=== PATIENT | male | born 1985 ===

== ENCOUNTER 2018-12-25 08:06 | Emergency (ER) | payer SELFPAY ==
[~2018-12-25] VITALS: Ht 162.6 cm; Wt 70.0 kg
[2018-12-25 08:59] VITALS: BP 102/58
== END 2018-12-25 10:00 | disposition home or self-care (01) ==
LOC: EMS 08:11
DX: S30.850A Superficial foreign body of lower back and pelvis, initial encounter (principal); S60.552A Superficial foreign body of left hand, initial encounter; S60.551A Superficial foreign body of right hand, initial encounter; S80.852A Superficial foreign body, left lower leg, initial encounter; S80.851A Superficial foreign body, right lower leg, initial encounter; F15.90 Other stimulant use, unspecified, uncomplicated; F17.210 Nicotine dependence, cigarettes, uncomplicated; W60.XXXA Contact with nonvenomous plant thorns and spines and sharp leaves, initial encounter; Y93.02 Activity, running; Y92.89 Other specified places as the place of occurrence of the external cause; Y99.8 Other external cause status